=== PATIENT | female | born 1990 | race African-American/Black ===

== ENCOUNTER 2020-03-06 11:04 | Outpatient (REF) | payer OTHER, SELFPAY ==
--- NOTE | 2020-03-06 11:07 | XR_ITS ---
EXAMINATION: XR HAND, RIGHT CLINICAL INFORMATION: Fracture base 5th metacarpal. Followup. COMPARISON: Radiographs right hand 01/27/2020 TECHNIQUE: Right hand is imaged in 3 views. FINDINGS: There is a comminuted fracture base 5th metacarpal again noted with horizontal component as well as probable vertical component extending to the articular surface. There is no significant change in alignment. Some callus formation is noted around the fracture site. Fracture lines are still visible. Remainder of the hand is unremarkable. IMPRESSION: Healing fracture base 5th metacarpal.
== END 2020-03-06 11:05 | disposition home or self-care (01) ==
LOC: CF 11:04
PROVIDERS: PCP Nurse Practitioner Family; Visit Provider Physician Assistant
DX: S62.306D Unspecified fracture of fifth metacarpal bone, right hand, subsequent encounter for fracture with routine healing (principal); M79.641 Pain in right hand
CPT/HCPCS: 73130; 99213

== ENCOUNTER → 2020-03-11 12:41 | Outpatient (BNVA) | payer OTHER, SELFPAY | PROVIDERS: Visit Provider Advanced Practice Midwife | DX: Z76.89 Persons encountering health services in other specified circumstances (principal) ==

== ENCOUNTER 2020-03-18 00:23 | Emergency (ER) | payer OTHER, SELFPAY ==
[2020-03-18 00:27] VITALS: BP 125/65; PULSE 89; RESP 16; TEMP 37.5; O2SAT 98; BMI 38.6
--- NOTE | 2020-03-18 01:16 | PC.NURSE ---
Pt ambulating with a selby/steady gait while in the waiting room. Pt reports relief of nausea with ambulation. Pt states she is a G1 PO AO.
--- NOTE | 2020-03-18 01:51 | US_ITS ---
EXAMINATION: ULTRASOUND OB EARLY CLINICAL INFORMATION: Nausea/vomiting COMPARISON: None TECHNIQUE: Sonographic evaluation of the pelvis was performed transabdominally and transvaginally. FINDINGS: The uterus measures 8.4 x 4.2 x 5.0 cm. Trace fluid is noted in the cervix. There is an intrauterine gestational sac containing a yolk sac and pole. [place]-rump length of 0.6 cm corresponds to a gestational age of 6 weeks 4 days (estimated date of delivery 11/07/2020). A heartbeat is identified with a rate of 111 bpm. Heterogeneous region is noted in the endometrium near the gestational sac, which could reflect perigestational hemorrhage. The right ovary measures 4.2 x 2.8 x 3.6 cm and appears unremarkable. The left ovary measures 4.2 x 3.1 x 3.5 cm and also appears unremarkable. Small amount of free fluid is noted. IMPRESSION: 1. Single live intrauterine with estimated date of delivery 11/07/2020. 2. Heterogeneous region in the endometrium near the gestational sac may represent perigestational hemorrhage. Attention on follow-up recommended. 3. Small amount of pelvic free fluid.
[2020-03-18 02:11] VITALS: BP 122/71; PULSE 90; RESP 18; TEMP 37.1; O2SAT 98
[2020-03-18] MEDS: ondansetron HCL 4 MG/2 ML VIAL IVPUSH (02:28)
[2020-03-18] MEDS: 0.9 % Sodium Chloride 1,000 ML 999 ML IVCONT (02:28)
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
[2020-03-18 02:40] LABS: MANUAL DIFF FLAG NO
[2020-03-18 02:42] LABS: Basophils Percent Auto 0.2 % (0-2); Eosinophils Absolute Auto 0.1 X10*3/uL (0.0-0.4); Eosinophils Percent Auto 0.7 % (0-4); Hematocrit 37.9 % (37-47); Hemoglobin 12.4 g/dl (12.0-16.0); Imm Gran Abs Auto 0.03 X10*3/uL (0.00-0.03); Imm Gran Pct Auto 0.2 % (0.0-0.4); Lymphocytes Absolute Auto 2.3 X10*3/uL (1.2-4.9); Lymphocytes Percent Auto 16.7 % (20-40); Mean Corpuscular HGB Conc 32.7 g/dl (31.0-35.0); Mean Corpuscular Hemoglobin 28.3 pg (27.0-33.0); Mean Corpuscular Volume 86.5 fL (80-98); Mean Platelet Volume 10.6 fL (9.4-12.3); Monocytes Absolute Auto 0.6 X10*3/uL (0.1-1.2); Monocytes Percent Auto 4.7 % (2-11); Neutrophils Absolute Auto 10.6 X10*3/uL (2.0-8.3); Neutrophils Percent Auto 77.5 % (45-73); Platelet Count 275 X10*3/uL (160-400); Red Blood Count 4.38 X10*6/uL (4.20-5.50); Red Cell Distribution Width 13.8 % (11.0-16.0); White Blood Count 13.6 X10*3/uL (4.8-10.8)
[2020-03-18 02:45] LABS: Appearance Urine CLEAR; Color Urine DARK YELLOW; Glucose Urine UA NEG (NEG); Leukocyte Esterase Urine NEG (NEG); Nitrite Urine NEG (NEG); Specific Gravity - Urine >= 1.030 (1.005-1.025); Urine Blood NEG (NEG); Urine Ketones 15 MG/DL (NEG); Urine Protein TRACE MG/DL (NEG-TRACE)
[2020-03-18 02:47] LABS: UPreg QC Valid YES; Urine Pregnancy POSITIVE (NEGATIVE)
[2020-03-18 03:18] LABS: Alanine Aminotransferase 13 U/L (0-31); Albumin Level 4.6 g/dL (3.5-5.0); Alkaline Phosphatase 44 U/L (39-117); Anion Gap 15 (12-20); Aspartate Amino Transferase 15 U/L (5-31); Bilirubin Total 0.7 mg/dL (0.0-1.0); Blood Urea Nitrogen 6 mg/dL (9-16); Calcium 9.8 mg/dL (8.4-10.2); Carbon Dioxide 23 mmol/L (22-29); Chloride 104 mmol/L (96-108); Creatinine Clr Calc Pharmacy 167.7; Estimated Glomerular Filt Rate > 60; Glucose Random 104 mg/dL (60-115); Potassium 4.7 mmol/l (3.3-5.1); Sodium 137 mmol/L (135-145)
[2020-03-18 03:35] VITALS: BP 114/60; PULSE 66; RESP 18; TEMP 37.3; O2SAT 100
[2020-03-18 03:37] VITALS: PULSE 65
== END 2020-03-18 05:40 | disposition home or self-care (01) ==
PROVIDERS: Emergency Provider Student in an Organized Health Care Education/Training Program
DX: O26.891 Other specified pregnancy related conditions, first trimester (principal); R11.2 Nausea with vomiting, unspecified; Z3A.01 Less than 8 weeks gestation of pregnancy
CPT/HCPCS: 36415; 76801; 76817; 80053; 81003; 81025; 84702; 85025; 96361; 96374; 99284; 99285; J2405

== ENCOUNTER 2020-03-18 10:04 | Outpatient (REF) | payer OTHER, SELFPAY | END 2020-03-18 10:05 | disposition home or self-care (01) | LOC: HO.US 10:04 | PROVIDERS: Visit Provider Advanced Practice Midwife | DX: Z13.89 Encounter for screening for other disorder (principal) ==

== ENCOUNTER 2020-03-24 22:14 | Emergency (ER) | payer MEDICAID, SELFPAY ==
[2020-03-24 22:45] VITALS: BP 122/71; PULSE 81; RESP 18; TEMP 37.3; O2SAT 100; BMI 38.6
--- NOTE | 2020-03-25 01:45 | ED_ITS ---
HPI - Nausea/Vomiting/Diarrhea General Chief complaint: Nausea/Vomiting/Diarrhea Stated complaint: ?DEHYDRATION/VOMITING/7WKS PREG Time Seen by Provider: 03/25/20 01:44 History of Present Illness HPI Narrative: Patient is a 29-year-old female approximately 7 weeks . Patient was in the hospital last week had an ultrasound done that showed a positive intrauterine . Patient presented today with having continued nausea vomiting. Patient tried vitamin B6. Attempted tight again suppository. To no avail patient continued to have nausea vomiting. No abdominal pain. Positive generalized malaise. No coughing or congestion or upper respiratory symptoms. Patient from home. Did travel to [place] last week. No upper respiratory symptoms. No pain on urination. Symptoms similar to last week. Related Data Home Medications Medication Instructions Recorded Confirmed albuterol sulfate 90 mcg/actuation 2 puff PO Q6H PRN 03/11/20 03/11/20 aerosol inhaler amoxicillin 875 mg-potassium 1 tab PO BID 03/11/20 03/11/20 clavulanate 125 mg tablet cephalexin 500 mg capsule mg PO Q6H 03/11/20 03/11/20 cetirizine 10 mg tablet 10 mg PO DAILY 03/11/20 03/11/20 doxycycline hyclate 100 mg tablet 100 mg PO Q12H 03/11/20 03/11/20 medroxyprogesterone 10 mg tablet 0 mg PO 03/11/20 03/11/20 metronidazole 500 mg tablet 500 mg PO BID 03/11/20 03/11/20 norethindrone-e.estradiol 1 tab PO DAILY 03/11/20 03/11/20 triphasic 0.5 mg/0.75 mg/1 mg-35 mcg tablet prednisone 20 mg tablet 20 mg PO BID 03/11/20 03/11/20 vitamin with calcium 1 tab PO DAILY 03/11/20 03/11/20 no.72-iron 27 mg-folic acid 1 mg tablet sulfamethoxazole 800 1 tab PO Q12H 03/11/20 03/11/20 mg-trimethoprim 160 mg tablet Previous Rx's Medication Instructions Recorded vitamin with calcium 1 tab PO DAILY 30 Days #30 tab 03/11/20 no.72-iron 27 mg-folic acid 1 mg tablet pyridoxine (vitamin B6) 25 mg PO TID #60 tab 03/18/20 promethazine 12.5 mg rectal 12.5 mg DC Q6H PRN 10 Days #12 ea 03/21/20 suppository ondansetron 4 mg PO TID PRN 5 Days #5 tab 03/25/20 Allergies Allergy/AdvReac Type Severity Reaction Status Date / Time No Known Allergies Allergy Verified 03/06/20 11:19 [No Known Allergies*] Review of Systems Review of Systems: Constitutional: No Weight loss, No Fever, No Chills, No Night Sweats, No Fatigue, No Malaise ENT/Mouth: No Hearing loss, No Ear Pain, No Nasal Congestion, No Sinus Pain, No Hoarseness, No sore throat, No Rhinorrhea, No Swallowing Difficulty Eyes: No Eye Pain, No Swelling, No Redness, No Foreign Body, No Discharge, No Vision Changes Cardiovascular: No Chest Pain, No SOB, No Dyspnea on Exertion, No Orthopnea, No Edema, No Palpitations Respiratory: No Cough, No Sputum, No Wheezing, No Smoke Exposure, No Dyspnea Gastrointestinal: Positive nausea, vomiting. No Diarrhea, No Constipation, No abdominal Pain, No Hematochezia, No Melena Genitourinary: no irregular bleeding, No Dysuria, No Urinary Frequency, No Hematuria, No Urinary Incontinence, No Urgency, No Flank Pain, No Urinary Flow Changes, No Hesitancy Musculoskeletal: No joint pain, No Myalgias, No Joint Swelling Skin: No Skin Lesions, No rash Neuro: No Weakness, No Numbness, No Paresthesias, No Loss of Consciousness, No Dizziness, No Headache Psych: No Anxiety/Panic, No Depression, No SI/HI/AH/VH, No Social Issues, Heme/Lymph: No Bruising, No Bleeding,No Lymphadenopathy Endocrine: No Polyuria, No Polydipsia, No Temperature Intolerance [facility] Past Medical History Source: unable to obtain Medical History Asthma Family History Family History Father Heart attack Mother No problems noted. Brother No problems noted. Brother No problems noted. Brother No problems noted. Sister No problems noted. Social History Social History Alcohol intake: never Smoking Status: Former smoker Smoked in Last 30 Days: No Substance Use Type: Marijuana Last Used Substance: Weeks (ago) Advance Directives: No Advance Directives Information Provided: No Physical Exam Vital Signs: Vital Signs: Vital Signs Temp Pulse Resp BP Pulse Ox 03/25/20 03:39 98.2 F 70 18 108/47 L 99 03/25/20 02:07 98.9 F 77 16 114/65 100 03/24/20 22:45 99.1 F 81 18 122/71 100 Body Mass Index 38.6 Appearance: Alert. Oriented X3. No acute distress. Eyes: Pupils equal, round and reactive to light. ENT: Pharynx normal. Neck: Normal inspection. Neck supple. No lymph nodes noted. No crepitus CVS: Normal heart rate and rhythm. Pulses normal. Normal S1 and S2 Respiratory: No respiratory distress. Breath sounds normal. No Wheezing. No rales Abdomen: Soft and nontender. No rigidity. No distention. good BS x4 Skin: Skin warm and dry. Normal skin color. Normal skin turgor. Extremities: No lower extremity edema. Neurovascular intact to all extremities. No Lacerations. No Rash Neuro: Oriented X 3. No motor deficit. No sensory deficit. Moving all extermities. No slurred speech MDM - Nausea/Vomiting/Diarrhea MDM Narrative Medical decision making narrative: Positive nausea, vomiting. Positive generalized malaise. Patient is 6 weeks . Likely the nausea vomiting secondary to hyper emesis. Will give IV fluids. After weighing the risk of dehydration versus the risk of medications. It was decided to give patient a dose of Zofran. Labs ordered. Differential Diagnosis Differential diagnosis: Likely food poisoning, gastroenteritis and dehydration Medical Records Attestation: I reviewed the patient's medical records. Lab Data Attestation: I reviewed the patient's lab results. Result diagrams: 03/25/20 02:03 03/25/20 02:03 Labs: Lab Results 03/25/20 03/25/20 Range/Units 02:03 02:03 WBC 14.1 H (4.8-10.8) X10*3/uL RBC 4.16 L (4.20-5.50) X10*6/uL Hgb 11.9 L (12.0-16.0) g/dl Hct 36.3 L (37-47) % MCV 87.3 (80-98) fL MCH 28.6 (27.0-33.0) pg MCHC 32.8 (31.0-35.0) g/dl RDW 13.6 (11.0-16.0) % Plt Count 258 (160-400) X10*3/uL MPV 10.1 (9.4-12.3) fL Immature Gran % (Auto) 0.4 (0.0-0.4) % Neut % (Auto) 71.7 (45-73) % Lymph % (Auto) 20.6 (20-40) % [place] % (Auto) 6.2 (2-11) % Eos % (Auto) 0.7 (0-4) % Baso % (Auto) 0.4 (0-2) % Lymph # (Auto) 2.9 (1.2-4.9) X10*3/uL [place] # (Auto) 0.9 (0.1-1.2) X10*3/uL Eos # (Auto) 0.1 (0.0-0.4) X10*3/uL Baso # (Auto) 0.1 (0.0-0.2) X10*3/uL Abs Immat Gran (auto) 0.05 H (0.00-0.03) X10*3/uL Absolute Neuts (auto) 10.1 H (2.0-8.3) X10*3/uL Absolute Nucleated RBC 0.000 (0.0-0.012) X10*3/uL Nucleated RBC % (auto) 0.0 (0.0-0.2) /100WBC Sodium 136 (135-145) mmol/L Potassium 4.2 (3.3-5.1) mmol/l Chloride 102 (96-108) mmol/L Carbon Dioxide 23 (22-29) mmol/L Anion Gap 15 (12-20) BUN 8 L (9-16) mg/dL Creatinine 0.76 (0.5-1.4) mg/dL Estim Creat Clear Calc 163.3 Estimated GFR > 60 Random Glucose 93 (60-115) mg/dL Calcium 9.0 (8.4-10.2) mg/dL Total Bilirubin 0.5 (0.0-1.0) mg/dL Direct Bilirubin 0.2 (0.0-0.5) mg/dL AST 14 (5-31) U/L ALT 19 (0-31) U/L Alkaline Phosphatase 40 (39-117) U/L Total Protein 7.5 (6.5-8.0) g/dL Albumin 4.3 (3.5-5.0) g/dL Discharge Plan Discharge Clinical Impression: Hyperemesis gravidarum Patient Disposition: Home, Self-Care Instructions: Hyperemesis Gravidarum (ED) Prescriptions: New ondansetron 4 mg tablet,disintegrating 4 mg PO TID PRN (Reason: nausea and vomiting) 5 Days Qty: 5 RF: 0 No Action promethazine 12.5 mg suppository 12.5 mg DC Q6H PRN (Reason: hyperemesis) 10 Days Qty: 12 RF: 2 pyridoxine (vitamin B6) 25 mg tablet 25 mg PO TID Qty: 60 RF: 0 Plus (calcium carb) 27 mg iron- 1 mg tablet 1 tab PO DAILY RF: 0 amoxicillin-pot clavulanate 875-125 mg tablet 1 tab PO BID RF: 0 albuterol sulfate 90 mcg/actuation HFA aerosol inhaler 2 puff PO Q6H PRNRF: 0 prednisone 20 mg tablet 20 mg PO BID RF: 0 cetirizine 10 mg tablet 10 mg PO DAILY RF: 0 metronidazole 500 mg tablet 500 mg PO BID RF: 0 medroxyprogesterone 10 mg tablet 0 mg PO RF: 0 Nortrel 7/7/7 (28) 0.5/0.75/1 mg- 35 mcg tablet 1 tab PO DAILY RF: 0 doxycycline hyclate 100 mg tablet 100 mg PO Q12H RF: 0 cephalexin 500 mg capsule PO Q6H RF: 0 sulfamethoxazole-trimethoprim 800-160 mg tablet 1 tab PO Q12H RF: 0 Plus (calcium carb) 27 mg iron- 1 mg tablet 1 tab PO DAILY 30 Days Qty: 30 RF: 11 Referrals: James Maravilla, [facility] [Primary Care Provider] - 2 days (Please follow-up with your OBGYN in the next 2 days. Very bland diet. Clear liquid with saltine crackers. Zofran only during extreme nausea vomiting.)
[2020-03-25] MEDS: 0.9 % Sodium Chloride 1,000 ML 999 ML IVCONT ×2 (02:04→02:05)
[2020-03-25] MEDS: ondansetron HCL 4 MG/2 ML VIAL IVPUSH (02:05)
[2020-03-25 02:07] VITALS: BP 114/65; PULSE 77; RESP 16; TEMP 37.2; O2SAT 100
[2020-03-25 02:12] LABS: MANUAL DIFF FLAG NO
[2020-03-25 02:14] LABS: Basophils Absolute Auto 0.1 X10*3/uL (0.0-0.2); Basophils Percent Auto 0.4 % (0-2); Eosinophils Absolute Auto 0.1 X10*3/uL (0.0-0.4); Eosinophils Percent Auto 0.7 % (0-4); Hematocrit 36.3 % (37-47); Hemoglobin 11.9 g/dl (12.0-16.0); Imm Gran Abs Auto 0.05 X10*3/uL (0.00-0.03); Imm Gran Pct Auto 0.4 % (0.0-0.4); Lymphocytes Absolute Auto 2.9 X10*3/uL (1.2-4.9); Lymphocytes Percent Auto 20.6 % (20-40); Mean Corpuscular HGB Conc 32.8 g/dl (31.0-35.0); Mean Corpuscular Hemoglobin 28.6 pg (27.0-33.0); Mean Corpuscular Volume 87.3 fL (80-98); Mean Platelet Volume 10.1 fL (9.4-12.3); Monocytes Absolute Auto 0.9 X10*3/uL (0.1-1.2); Monocytes Percent Auto 6.2 % (2-11); Neutrophils Absolute Auto 10.1 X10*3/uL (2.0-8.3); Neutrophils Percent Auto 71.7 % (45-73); Platelet Count 258 X10*3/uL (160-400); Red Blood Count 4.16 X10*6/uL (4.20-5.50); Red Cell Distribution Width 13.6 % (11.0-16.0); White Blood Count 14.1 X10*3/uL (4.8-10.8)
[2020-03-25 02:37] LABS: Alanine Aminotransferase 19 U/L (0-31); Albumin Level 4.3 g/dL (3.5-5.0); Alkaline Phosphatase 40 U/L (39-117); Anion Gap 15 (12-20); Aspartate Amino Transferase 14 U/L (5-31); Bilirubin Direct 0.2 mg/dL (0.0-0.5); Bilirubin Total 0.5 mg/dL (0.0-1.0); Blood Urea Nitrogen 8 mg/dL (9-16); Carbon Dioxide 23 mmol/L (22-29); Chloride 102 mmol/L (96-108); Creatinine Clr Calc Pharmacy 163.3; Estimated Glomerular Filt Rate > 60; Glucose Random 93 mg/dL (60-115); Potassium 4.2 mmol/l (3.3-5.1); Sodium 136 mmol/L (135-145); Total Protein 7.5 g/dL (6.5-8.0)
--- NOTE | 2020-03-25 03:05 | PC.NURSE ---
REPORT TAKEN FROM RUTH GALVEZ AT THIS TIME. PT HAS 2 L NS RUNNING AT THIS TIME. PT NOT ACTIVELY VOMITTING. RECIEVED ULTRASOUND X 1 WEEK AGO. APPROX 7 WEEKS . STATES NO ACTIVE BLEEDING, CRAMPS. PT UNABLE TO GIVE URINE SAMPLE AT THIS TIME. EXPLAINED TO CALL WHEN ABLE TO. PT IN NAD
--- NOTE | 2020-03-25 03:33 | PC.NURSE ---
PT AMBULATED TO BATHROOM WITH STEADY GAIT FOR URINE SAMPLE
[2020-03-25 03:39] VITALS: BP 108/47; PULSE 70; RESP 18; TEMP 36.8; O2SAT 99
[2020-03-25 03:47] LABS: Appearance Urine CLEAR; Color Urine DARK YELLOW; Glucose Urine UA NEG (NEG); Leukocyte Esterase Urine NEG (NEG); Nitrite Urine NEG (NEG); Specific Gravity - Urine >= 1.030 (1.005-1.025); UACC Culture Trigger NO; Urine Blood NEG (NEG); Urine Ketones 15 MG/DL (NEG); Urine Protein NEG (NEG-TRACE)
== END 2020-03-25 04:04 | disposition home or self-care (01) ==
PROVIDERS: Emergency Provider Emergency Medicine Emergency Medical Services; PCP Nurse Practitioner Family
DX: O21.0 Mild hyperemesis gravidarum (principal); Z3A.01 Less than 8 weeks gestation of pregnancy; Z20.828 Contact with and (suspected) exposure to other viral communicable diseases; Z79.899 Other long term (current) drug therapy; Z87.891 Personal history of nicotine dependence
CPT/HCPCS: 36415; 80048; 80076; 81003; 85025; 87635; 96361; 96374; 99284; J2405

== ENCOUNTER → 2020-03-31 09:59 | Outpatient (BNVA) | payer MEDICAID, SELFPAY | PROVIDERS: PCP Nurse Practitioner Family; Referring Provider Nurse Practitioner Family; Visit Provider Advanced Practice Midwife | DX: Z76.89 Persons encountering health services in other specified circumstances (principal) ==

== ENCOUNTER 2020-04-01 07:48 | Outpatient (REF) | payer MEDICAID, SELFPAY ==
--- NOTE | 2020-04-01 08:10 | US_ITS ---
EXAMINATION: FIRST TRIMESTER OB ULTRASOUND CLINICAL INFORMATION: Follow-up subchorionic bleed COMPARISON: Previous exam 03/18/2020 TECHNIQUE: Transabdominal first trimester OB ultrasound FINDINGS: The uterus is normal in size and shape and measures 11.3 x 5.3 x 7 cm in dimension. There is an intrauterine gestational sac. [place]-rump length measures 2 cm suggesting gestational age of 8 weeks 4 days with estimated date of delivery of 11/06/2020. This agrees with date from previous exam. heart rate is 158 bpm. There is a yolk sac. There is a 2.3 x 1.2 x 1.5 cm hypoechoic collection adjacent to the gestational sac suggestive of a small subchorionic hemorrhage. This is more hypoechoic and similar in size compared to previous exam 03/18/2020. The maternal ovaries are normal. There is no fluid in the pelvis. US/US OB limited IMPRESSION: Single viable intrauterine . From today's measurements gestational age is estimated at 8 weeks 4 days with estimated date of delivery of 11/06/2020. Small hypoechoic collection adjacent to the gestational sac measuring 2.3 x 1.2 x 1.5 cm suggestive of subchorionic hemorrhage. This does not appear appreciably changed in size from previous exam.
[2020-04-01 09:33] LABS: Basophils Percent Auto 0.4 % (0-2); Eosinophils Absolute Auto 0.1 X10*3/uL (0.0-0.4); Eosinophils Percent Auto 0.5 % (0-4); Hematocrit 36.9 % (37-47); Hemoglobin 12.3 g/dl (12.0-16.0); Imm Gran Abs Auto 0.03 X10*3/uL (0.00-0.03); Imm Gran Pct Auto 0.3 % (0.0-0.4); Lymphocytes Absolute Auto 2.2 X10*3/uL (1.2-4.9); Lymphocytes Percent Auto 21.8 % (20-40); MANUAL DIFF FLAG NO; Mean Corpuscular HGB Conc 33.3 g/dl (31.0-35.0); Mean Corpuscular Hemoglobin 28.7 pg (27.0-33.0); Mean Corpuscular Volume 86.2 fL (80-98); Mean Platelet Volume 10.7 fL (9.4-12.3); Monocytes Absolute Auto 0.7 X10*3/uL (0.1-1.2); Monocytes Percent Auto 6.6 % (2-11); Neutrophils Absolute Auto 7.1 X10*3/uL (2.0-8.3); Neutrophils Percent Auto 70.4 % (45-73); Platelet Count 271 X10*3/uL (160-400); Red Blood Count 4.28 X10*6/uL (4.20-5.50); Red Cell Distribution Width 13.5 % (11.0-16.0); White Blood Count 10.1 X10*3/uL (4.8-10.8)
[2020-04-01 10:13] LABS: Amphetamine Screen Urine Not Detected (Not Detect); Barbiturates, Urine Not Detected (Not Detect); Benzodiazepines Screen Urine Not Detected (Not Detect); Cannabinoid Screen Urine POSITIVE (Not Detect); Cocaine Screen Urine Not Detected (Not Detect); Opiate Screen Urine Not Detected (Not Detect); Phencyclidine Screen Urine Not Detected (Not Detect)
[2020-04-01 10:24] LABS: HBsAGNum1 0.18 S/CO (0.00-0.99); HIV AB/AG Nonreactive (Nonreactive); HIV Num 1 0.19 S/CO (0.00-0.99); Hepatitis B Surface Antigen Negative (Negative)
[2020-04-01 10:32] LABS: Sickle Cell Scr NEGATIVE (NEGATIVE)
[2020-04-01 10:33] LABS: ~HepC Num1 0.11 S/CO (0.00-0.79); ~Hepatitis C Antibody Nonreactive (Nonreactive)
[2020-04-02 07:56] LABS: Syphilis Screen Nonreactive (Nonreactive)
[2020-04-02 09:17] LABS: Rubella IgG Antibody <0.90 index
[2020-04-02 13:36] LABS: Toxoplasma IgG Antibody <7.20 IU/mL; Toxoplasma IgM Antibody <8.00 AU/mL
== END 2020-04-01 07:49 | disposition home or self-care (01) ==
LOC: HO.US 07:48
PROVIDERS: PCP Nurse Practitioner Family; Visit Provider Advanced Practice Midwife
DX: O46.8X9 Other antepartum hemorrhage, unspecified trimester (principal)
CPT/HCPCS: 36415; 76815; 80307; 85025; 85660; 86762; 86777; 86778; 86780; 86787; 86803; 86850; 86900; 86901; 87086; 87340; 87389

== ENCOUNTER → 2020-04-04 10:22 | Outpatient (BNVA) | payer OTHER, SELFPAY | PROVIDERS: Visit Provider Physician Assistant | DX: S62.306D Unspecified fracture of fifth metacarpal bone, right hand, subsequent encounter for fracture with routine healing (principal); X58.XXXD Exposure to other specified factors, subsequent encounter | CPT/HCPCS: 99212 ==

== ENCOUNTER 2020-04-04 13:08 | Emergency (ER) | payer OTHER, SELFPAY ==
[2020-04-04 13:35] VITALS: BP 145/90; PULSE 67; RESP 17; TEMP 36.8; O2SAT 100; BMI 31.1
[2020-04-04] MEDS: 0.9 % Sodium Chloride 1,000 ML 999 ML IVCONT ×2 (14:06→15:31)
[2020-04-04] MEDS: diphenhydrAMINE HCL 50 MG/ML VIAL 25 MG IVPUSH (14:07)
[2020-04-04 14:20] LABS: MANUAL DIFF FLAG NO
[2020-04-04 14:21] LABS: Basophils Percent Auto 0.3 % (0-2); Eosinophils Absolute Auto 0.1 X10*3/uL (0.0-0.4); Eosinophils Percent Auto 0.4 % (0-4); Hematocrit 37.3 % (37-47); Hemoglobin 12.5 g/dl (12.0-16.0); Imm Gran Abs Auto 0.05 X10*3/uL (0.00-0.03); Imm Gran Pct Auto 0.4 % (0.0-0.4); Lymphocytes Absolute Auto 1.9 X10*3/uL (1.2-4.9); Lymphocytes Percent Auto 13.8 % (20-40); Mean Corpuscular HGB Conc 33.5 g/dl (31.0-35.0); Mean Corpuscular Hemoglobin 28.6 pg (27.0-33.0); Mean Corpuscular Volume 85.4 fL (80-98); Mean Platelet Volume 10.3 fL (9.4-12.3); Monocytes Absolute Auto 0.8 X10*3/uL (0.1-1.2); Monocytes Percent Auto 6.1 % (2-11); Neutrophils Absolute Auto 10.7 X10*3/uL (2.0-8.3); Platelet Count 291 X10*3/uL (160-400); Red Blood Count 4.37 X10*6/uL (4.20-5.50); Red Cell Distribution Width 13.3 % (11.0-16.0); White Blood Count 13.5 X10*3/uL (4.8-10.8)
[2020-04-04 14:36] LABS: Glucose Urine UA NEG (NEG); Leukocyte Esterase Urine NEG (NEG); Nitrite Urine NEG (NEG); Specific Gravity - Urine >= 1.030 (1.005-1.025); Urine Blood NEG (NEG); Urine Ketones 40 MG/DL (NEG); Urine Protein TRACE MG/DL (NEG-TRACE)
[2020-04-04 14:37] LABS: Appearance Urine HAZY; Color Urine DARK YELLOW; UACC Culture Trigger NO
[2020-04-04 14:53] LABS: Alanine Aminotransferase 27 U/L (0-31); Albumin Level 4.4 g/dL (3.5-5.0); Alkaline Phosphatase 39 U/L (39-117); Anion Gap 16 (12-20); Aspartate Amino Transferase 26 U/L (5-31); Bilirubin Direct 0.4 mg/dL (0.0-0.5); Bilirubin Total 0.6 mg/dL (0.0-1.0); Blood Urea Nitrogen 8 mg/dL (9-16); Calcium 8.9 mg/dL (8.4-10.2); Carbon Dioxide 23 mmol/L (22-29); Chloride 101 mmol/L (96-108); Creatinine Clr Calc Pharmacy 152.2; Estimated Glomerular Filt Rate > 60; Glucose Random 94 mg/dL (60-115); Lipase 39 U/L (8-78); Magnesium 1.9 mg/dL (1.6-2.6); Potassium 3.9 mmol/l (3.3-5.1); Sodium 136 mmol/L (135-145); Total Protein 7.8 g/dL (6.5-8.0)
--- NOTE | 2020-04-04 15:12 | ED.NAVMDI ---
HPI - Nausea/Vomiting/Diarrhea General Chief complaint: Nausea/Vomiting/Diarrhea Stated complaint: Nausea, vomiting Time Seen by Provider: 04/04/20 13:41 Source: patient Mode of arrival: ambulatory History of Present Illness HPI Narrative: 29-year-old female at 9 weeks gestation presenting to ED complaining of persistent nausea and vomiting with decreased p.o. intake. Reports inability to tolerate anything for the past 24 hours. Admits takes Zofran at home with relief, has been struggling with hyperemesis during . Denies fever, chills, diarrhea/constipation, abdominal pain, vaginal bleeding, vaginal discharge Reports taking multiple other antiemetics which provide no relief for her MD elicited complaint: nausea and vomiting Pertinent past history: anorexia Related Data Home Medications Medication Instructions Recorded Confirmed albuterol sulfate 90 mcg/actuation 2 puff PO Q6H PRN 03/11/20 03/31/20 aerosol inhaler amoxicillin 875 mg-potassium 1 tab PO BID 03/11/20 03/11/20 clavulanate 125 mg tablet cephalexin 500 mg capsule mg PO Q6H 03/11/20 03/11/20 cetirizine 10 mg tablet 10 mg PO DAILY 03/11/20 03/11/20 doxycycline hyclate 100 mg tablet 100 mg PO Q12H 03/11/20 03/11/20 medroxyprogesterone 10 mg tablet 0 mg PO 03/11/20 03/11/20 metronidazole 500 mg tablet 500 mg PO BID 03/11/20 03/11/20 norethindrone-e.estradiol 1 tab PO DAILY 03/11/20 03/11/20 triphasic 0.5 mg/0.75 mg/1 mg-35 mcg tablet prednisone 20 mg tablet 20 mg PO BID 03/11/20 03/11/20 vitamin with calcium 1 tab PO DAILY 03/11/20 03/11/20 no.72-iron 27 mg-folic acid 1 mg tablet sulfamethoxazole 800 1 tab PO Q12H 03/11/20 03/11/20 mg-trimethoprim 160 mg tablet Previous Rx's Medication Instructions Recorded vitamin with calcium 1 tab PO DAILY 30 Days #30 tab 03/11/20 no.72-iron 27 mg-folic acid 1 mg tablet pyridoxine (vitamin B6) 25 mg PO TID #60 tab 03/18/20 promethazine 12.5 mg rectal 12.5 mg RI Q6H PRN 10 Days #12 ea 03/21/20 suppository ondansetron 4 mg PO TID PRN 5 Days #5 tab 03/25/20 diphenhydramine HCl [Benadryl] 25 mg PO Q6H PRN #14 cap 04/04/20 ondansetron HCl [Zofran] 4 mg PO Q8H PRN #10 tab 04/04/20 Allergies Allergy/AdvReac Type Severity Reaction Status Date / Time No Known Allergies Allergy Verified 04/04/20 10:35 [No Known Allergies*] Review of Systems Review of Systems: Constitutional: No Weight loss, No Fever, No Chills, +anorexia Cardiovascular: No Chest Pain, No SOB Respiratory: No Cough, No Sputum Gastrointestinal: +Nausea, +Vomiting, No Diarrhea, No Constipation, No Abdominal pain, no vaginal bleeding, no vaginal discharge Genitourinary: No irregular bleeding, No Dysuria, No Urinary Frequency, No Hematuria, No Flank Pain Musculoskeletal: No joint pain, No Myalgias, No Joint Swelling Skin: No Skin Lesions, No rash Yes all other systems are reviewed and are negative [facility] Past Medical History Attestation statement: The following information was validated with the patient. Medical History Asthma Hx of hepatitis C Family History Family History Father Heart attack Mother No problems noted. Brother No problems noted. Brother No problems noted. Brother No problems noted. Sister No problems noted. Maternal Grandmother Hx of diabetes mellitus Hx of primary hypertension Maternal Grandfather History of heart attack Paternal Grandmother No problems noted. Paternal Grandfather No problems noted. 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 Current occupational exposures/hazards: No Physical Exam Vital Signs: Vital Signs: Last Vital Signs Temp 97.9 F 11/06/20 15:34 Pulse 67 04/04/20 15:34 Resp 17 04/04/20 15:34 BP 103/57 L 04/04/20 15:34 Pulse Ox 100 04/04/20 15:34 Body Mass Index 31.1 Const: General: cooperative and healthy appearing Orientation/consciousness: patient oriented x3 Limitations: no limitations HENMT: Head: Yes normal to inspection Ears: hearing grossly normal bilaterally General nose exam: Normal external nose present Face and sinus: Yes normal facial exam Eyes: General: appearance normal, both eyes and all related structures EOM: EOMs intact bilaterally Neck: Neck: Yes normal visual inspection Resp: Effort & Inspection: normal respiratory effort Cardio: Rate: regular rate GI: Inspection: Yes normal to inspection Palpation (GI): Soft to palpation, nontender, no guarding and not rigid : General: Yes no CVA tenderness Back/Spine/Pelvis: Back: no CVA tenderness Skin: Rashes: no rashes Wounds: no wounds Neuro: General: patient oriented x3 Gait exam (Neuro): Normal gait present Extrem: General: Yes normal to inspection Course Course Course Narrative: -mild leukocytosis of 13.5> likely from emesis, labs are otherwise unremarkable -UA with 40 ketones, not infected -1524--no episodes of emesis since ED arrival -1530--patient is tolerating p.o. saltines in the ED without nausea or vomiting. Will give total of 2L IVF and plan for DC home with OBGYN follow-up Discussed with patient risks of possible congenital defects with Zofran, she reports has been discussed in the past, understands risks, however is only medication that helps her symptoms, is agreeable to receive IV Zofran in the ED. -1700--on re-evaluation patient reports symptomatic improvement in the ED, was able to tolerate p.o., worrisome signs and symptoms and strict return precautions discussed. Patient is to follow-up with her OBGYN. She verbalized understanding and feels safe for discharge home MDM - Nausea/Vomiting/Diarrhea MDM Narrative Medical decision making narrative: 29-year-old female at 9 weeks gestation presenting to ED complaining of persistent nausea and vomiting with decreased p.o. intake. On exam VSS, NAD/nontoxic appearing, abdomen soft/nontender, no CVAT. Concern for dehydration/hyperemesis. Lower concern for miscarriage or infectious etiology Plan: Labs, UA, IVF, symptomatic therapy/reassess Lab Data Result diagrams: 04/04/20 14:04/04/20 14: Labs: Lab Results 04/04/20 04/04/20 04/04/20 Range/Units 14: 14: 14:01 WBC 13.5 H (4.8-10.8) X10*3/uL RBC 4.37 (4.20-5.50) X10*6/uL Hgb 12.5 (12.0-16.0) g/dl Hct 37.3 (37-47) % MCV 85.4 (80-98) fL MCH 28.6 (27.0-33.0) pg MCHC 33.5 (31.0-35.0) g/dl RDW 13.3 (11.0-16.0) % Plt Count 291 (160-400) X10*3/uL MPV 10.3 (9.4-12.3) fL Immature Gran % (Auto) 0.4 (0.0-0.4) % Neut % (Auto) 79.0 H (45-73) % Lymph % (Auto) 13.8 L (20-40) % [place] % (Auto) 6.1 (2-11) % Eos % (Auto) 0.4 (0-4) % Baso % (Auto) 0.3 (0-2) % Lymph # (Auto) 1.9 (1.2-4.9) X10*3/uL [place] # (Auto) 0.8 (0.1-1.2) X10*3/uL Eos # (Auto) 0.1 (0.0-0.4) X10*3/uL Baso # (Auto) 0.0 (0.0-0.2) X10*3/uL Abs Immat Gran (auto) 0.05 H (0.00-0.03) X10*3/uL Absolute Neuts (auto) 10.7 H (2.0-8.3) X10*3/uL Absolute Nucleated RBC 0.000 (0.0-0.012) X10*3/uL Nucleated RBC % (auto) 0.0 (0.0-0.2) /100WBC Sodium 136 (135-145) mmol/L Potassium 3.9 (3.3-5.1) mmol/l Chloride 101 (96-108) mmol/L Carbon Dioxide 23 (22-29) mmol/L Anion Gap 16 (12-20) BUN 8 L (9-16) mg/dL Creatinine 0.73 (0.5-1.4) mg/dL Estim Creat Clear Calc 152.2 Estimated GFR > 60 Random Glucose 94 (60-115) mg/dL Calcium 8.9 (8.4-10.2) mg/dL Magnesium 1.9 (1.6-2.6) mg/dL Total Bilirubin 0.6 (0.0-1.0) mg/dL Direct Bilirubin 0.4 (0.0-0.5) mg/dL AST 26 D (5-31) U/L ALT 27 (0-31) U/L Alkaline Phosphatase 39 (39-117) U/L Total Protein 7.8 (6.5-8.0) g/dL Albumin 4.4 (3.5-5.0) g/dL Lipase 39 (8-78) U/L Beta HCG, Quant 899601 mIU/mL Urine Color Urine Appearance Urine pH (5.0-8.0) Ur Specific [place] (1.005-1.025) Urine Protein (NEG-TRACE) MG/DL Urine Glucose (UA) (NEG) MG/DL Urine Ketones (NEG) MG/DL Urine Blood (NEG) Urine Nitrite (NEG) Ur Leukocyte Esterase (NEG) 04/04/20 Range/Units 14:01 WBC (4.8-10.8) X10*3/uL RBC (4.20-5.50) X10*6/uL Hgb (12.0-16.0) g/dl Hct (37-47) % MCV (80-98) fL MCH (27.0-33.0) pg MCHC (31.0-35.0) g/dl RDW (11.0-16.0) % Plt Count (160-400) X10*3/uL MPV (9.4-12.3) fL Immature Gran % (Auto) (0.0-0.4) % Neut % (Auto) (45-73) % Lymph % (Auto) (20-40) % [place] % (Auto) (2-11) % Eos % (Auto) (0-4) % Baso % (Auto) (0-2) % Lymph # (Auto) (1.2-4.9) X10*3/uL [place] # (Auto) (0.1-1.2) X10*3/uL Eos # (Auto) (0.0-0.4) X10*3/uL Baso # (Auto) (0.0-0.2) X10*3/uL Abs Immat Gran (auto) (0.00-0.03) X10*3/uL Absolute Neuts (auto) (2.0-8.3) X10*3/uL Absolute Nucleated RBC (0.0-0.012) X10*3/uL Nucleated RBC % (auto) (0.0-0.2) /100WBC Sodium (135-145) mmol/L Potassium (3.3-5.1) mmol/l Chloride (96-108) mmol/L Carbon Dioxide (22-29) mmol/L Anion Gap (12-20) BUN (9-16) mg/dL Creatinine (0.5-1.4) mg/dL Estim Creat Clear Calc Estimated GFR Random Glucose (60-115) mg/dL Calcium (8.4-10.2) mg/dL Magnesium (1.6-2.6) mg/dL Total Bilirubin (0.0-1.0) mg/dL Direct Bilirubin (0.0-0.5) mg/dL AST (5-31) U/L ALT (0-31) U/L Alkaline Phosphatase (39-117) U/L Total Protein (6.5-8.0) g/dL Albumin (3.5-5.0) g/dL Lipase (8-78) U/L Beta HCG, Quant mIU/mL Urine Color DARK YELLOW Urine Appearance HAZY Urine pH 6.0 (5.0-8.0) Ur Specific [place] >= 1.030 H (1.005-1.025) Urine Protein TRACE (NEG-TRACE) MG/DL Urine Glucose (UA) NEG (NEG) MG/DL Urine Ketones 40 (NEG) MG/DL Urine Blood NEG (NEG) Urine Nitrite NEG (NEG) Ur Leukocyte Esterase NEG (NEG) Discharge Plan Discharge Clinical Impression: Hyperemesis gravidarum Patient Disposition: Home, Self-Care Instructions: Hyperemesis Gravidarum (ED) Additional Instructions: Your blood work today in the ED Your urine showed elements of dehydration You need to stay hydrated at home, drink Gatorade, Pedialyte, water You can continue to take Zofran at home for nausea, be aware Zofran can cause congenital defects In addition you can take Benadryl which will help with nausea/vomiting, be aware that it will make you drowsy If you are unable to eat or drink, develops fever, abdominal pain, vaginal bleeding or discharge return to the ED immediately Prescriptions: New ondansetron HCl [Zofran] 4 mg tablet 4 mg PO Q8H PRN (Reason: nausea and vomiting) Qty: 10 RF: 0 diphenhydramine HCl [Benadryl] 25 mg capsule 25 mg PO Q6H PRN (Reason: nausea and vomiting) Qty: 14 RF: 0 No Action promethazine 12.5 mg suppository 12.5 mg RI Q6H PRN (Reason: hyperemesis) 10 Days Qty: 12 RF: 2 ondansetron 4 mg tablet,disintegrating 4 mg PO TID PRN (Reason: nausea and vomiting) 5 Days Qty: 5 RF: 0 pyridoxine (vitamin B6) 25 mg tablet 25 mg PO TID Qty: 60 RF: 0 Plus (calcium carb) 27 mg iron- 1 mg tablet 1 tab PO DAILY RF: 0 amoxicillin-pot clavulanate 875-125 mg tablet 1 tab PO BID RF: 0 albuterol sulfate 90 mcg/actuation HFA aerosol inhaler 2 puff PO Q6H PRNRF: 0 prednisone 20 mg tablet 20 mg PO BID RF: 0 cetirizine 10 mg tablet 10 mg PO DAILY RF: 0 metronidazole 500 mg tablet 500 mg PO BID RF: 0 medroxyprogesterone 10 mg tablet 0 mg PO RF: 0 Nortrel 7/7/7 (28) 0.5/0.75/1 mg- 35 mcg tablet 1 tab PO DAILY RF: 0 doxycycline hyclate 100 mg tablet 100 mg PO Q12H RF: 0 cephalexin 500 mg capsule PO Q6H RF: 0 sulfamethoxazole-trimethoprim 800-160 mg tablet 1 tab PO Q12H RF: 0 Plus (calcium carb) 27 mg iron- 1 mg tablet 1 tab PO DAILY 30 Days Qty: 30 RF: 11 Referrals: Lupis Zavala CNM [Certified Nurse Sterilisation Technician] - 3 days
[2020-04-04 15:34] VITALS: BP 103/57; PULSE 67; RESP 17; TEMP 36.6; O2SAT 100
[2020-04-04] MEDS: ondansetron HCL 4 MG/2 ML VIAL IVPUSH (17:22)
== END 2020-04-04 17:50 | disposition home or self-care (01) ==
PROVIDERS: Physician Assistant; Emergency Provider Emergency Medicine; PCP Nurse Practitioner Family
DX: O21.0 Mild hyperemesis gravidarum (principal); Z3A.09 9 weeks gestation of pregnancy; Z79.899 Other long term (current) drug therapy
CPT/HCPCS: 36415; 80048; 80076; 81003; 83690; 83735; 84702; 85025; 96361; 96374; 96375; 99284; J1200; J2405

== ENCOUNTER 2020-04-21 11:06 | Outpatient (REF) | payer OTHER, SELFPAY ==
[2020-04-22 05:59] LABS: CT PCR NOT DETECTED (Not Detect.); NG PCR NOT DETECTED (Not Detect.)
[2020-04-22 09:30] LABS: BV Int Neg Control Negative (Negative); BV Int Pos Control Positive (Positive)
== END 2020-04-21 11:07 | disposition home or self-care (01) ==
LOC: HO.LAB 11:06
PROVIDERS: PCP Nurse Practitioner Family; Visit Provider Advanced Practice Midwife
DX: Z34.90 Encounter for supervision of normal pregnancy, unspecified, unspecified trimester (principal); Z13.31 Encounter for screening for depression
CPT/HCPCS: 87480; 87491; 87510; 87591; 87660

== ENCOUNTER 2020-04-23 08:05 | Emergency (ER) | payer OTHER, SELFPAY ==
[2020-04-23 08:27] VITALS: BP 133/77; PULSE 87; RESP 15; TEMP 36.6; O2SAT 98; BMI 37.3
[2020-04-23 09:09] LABS: Glucose Urine UA NEG (NEG); Leukocyte Esterase Urine NEG (NEG); Nitrite Urine NEG (NEG); Specific Gravity - Urine >= 1.030 (1.005-1.025); Urine Blood 2+ (NEG); Urine Ketones NEG (NEG); Urine Protein NEG (NEG-TRACE)
[2020-04-23 09:10] LABS: Appearance Urine CLEAR; Color Urine YELLOW
--- NOTE | 2020-04-23 09:14 | US_ITS ---
EXAMINATION: US OBSTETRICAL ULTRASOUND CLINICAL INFORMATION: Vaginal bleeding, mild cramping. COMPARISON: Ultrasound pelvis 04/01/2020, 03/18/2020. Gestational age by initial ultrasound dating is 11 weeks 5 days. Estimated date of delivery by initial ultrasound dating is 11/07/2020. TECHNIQUE: Ultrasound of the maternal pelvis is performed using transabdominal transducer. M-mode Doppler is also performed. FINDINGS: There is single intrauterine gestation again seen. Small subchorionic hemorrhage is decreased in size, current measurements 0.4 x 0.7 x 1.6 cm. Prior measurement 1.2 x 1.5 x 2.3 cm. There is a contraction anterior uterus 2.7 cm size. No fibroid in this area on prior imaging. Early posterior placenta is suggested. No placental hemorrhage or hematoma. HR: 153 beats per minute. CRL (crown rump length): 4.4 cm (11 weeks 2 days +/- 4 days). There is been appropriate growth since the initial ultrasound. MATERNAL ADNEXA: The right maternal ovary measures 4.2 x 2.5 x 4.2 cm. The left maternal ovary measures 4.2 x 2.5 x 3.0 cm. No adnexal mass or maternal pelvic ascites. US/US OB follow up IMPRESSION: 1. Single intrauterine gestation with appropriate growth since the initial ultrasound. cardiac activity 153 bpm. 2. Small subchorionic hemorrhage decreased in size from prior studies, currently 0.4 x 0.7 x 1.6 cm. 3. No maternal adnexal mass or pelvic ascites.
[2020-04-23 09:19] LABS: MANUAL DIFF FLAG NO
[2020-04-23 09:23] LABS: Bacteria Urine 2+ /LPF; Squamous Epithelial Cell Urine 2+ /LPF; WBC Urine 0-2 /HPF (0-4)
[2020-04-23 09:24] LABS: Mucus Urine 1+ /LPF
[2020-04-23 09:31] LABS: INTERNATIONAL NORM RATIO 1.1 (0.9-1.1); Prothrombin Time 12.6 SEC (10.8-13.0)
[2020-04-23 09:33] LABS: Basophils Percent Auto 0.3 % (0-2); Eosinophils Absolute Auto 0.2 X10*3/uL (0.0-0.4); Eosinophils Percent Auto 1.5 % (0-4); Hematocrit 34.6 % (37-47); Hemoglobin 11.6 g/dl (12.0-16.0); Imm Gran Abs Auto 0.04 X10*3/uL (0.00-0.03); Imm Gran Pct Auto 0.4 % (0.0-0.4); Lymphocytes Absolute Auto 1.7 X10*3/uL (1.2-4.9); Lymphocytes Percent Auto 17.2 % (20-40); Mean Corpuscular HGB Conc 33.5 g/dl (31.0-35.0); Mean Corpuscular Hemoglobin 29.2 pg (27.0-33.0); Mean Corpuscular Volume 87.2 fL (80-98); Mean Platelet Volume 10.3 fL (9.4-12.3); Monocytes Absolute Auto 0.5 X10*3/uL (0.1-1.2); Monocytes Percent Auto 5.2 % (2-11); Neutrophils Absolute Auto 7.4 X10*3/uL (2.0-8.3); Neutrophils Percent Auto 75.4 % (45-73); Platelet Count 275 X10*3/uL (160-400); Red Blood Count 3.97 X10*6/uL (4.20-5.50); Red Cell Distribution Width 13.9 % (11.0-16.0); White Blood Count 9.9 X10*3/uL (4.8-10.8)
[2020-04-23 09:50] LABS: Alanine Aminotransferase 9 U/L (0-31); Albumin Level 3.8 g/dL (3.5-5.0); Alkaline Phosphatase 37 U/L (39-117); Anion Gap 12 (12-20); Aspartate Amino Transferase 11 U/L (5-31); Bilirubin Direct < 0.2 mg/dL (0.0-0.5); Bilirubin Total 0.2 mg/dL (0.0-1.0); Blood Urea Nitrogen 5 mg/dL (9-16); Calcium 8.7 mg/dL (8.4-10.2); Carbon Dioxide 24 mmol/L (22-29); Chloride 104 mmol/L (96-108); Creatinine Clr Calc Pharmacy 181.6; Estimated Glomerular Filt Rate > 60; Glucose Random 90 mg/dL (60-115); Magnesium 1.7 mg/dL (1.6-2.6); Sodium 136 mmol/L (135-145); Total Protein 6.8 g/dL (6.5-8.0)
--- NOTE | 2020-04-23 11:09 | ED.FEMALEGU ---
HPI - Female Genitourinary General Chief complaint: Vaginal Bleeding Stated complaint: abd pain, vaginal bleeding, Time Seen by Provider: 04/23/20 08:43 Source: patient Mode of arrival: ambulatory Limitations: no limitations History of Present Illness HPI Narrative: 29yoF who is [id number] currently 11 weeks being followed by [facility] presenting to the ED c c/o vaginal bleed since lastnight brown colored only when she wipes and mild lower abd cramping. Denies any fevers, nausea, vomiting or vaginal discharge. Denies any additional complaints or concerns at this time. Patient's due date is 11/08/2019 confirm with ultrasound. MD elicited complaint: possible STD Related Data Home Medications Medication Instructions Recorded Confirmed albuterol sulfate 90 mcg/actuation 2 puff PO Q6H PRN 03/11/20 03/31/20 aerosol inhaler amoxicillin 875 mg-potassium 1 tab PO BID 03/11/20 03/11/20 clavulanate 125 mg tablet cephalexin 500 mg capsule mg PO Q6H 03/11/20 03/11/20 cetirizine 10 mg tablet 10 mg PO DAILY 03/11/20 03/11/20 doxycycline hyclate 100 mg tablet 100 mg PO Q12H 03/11/20 03/11/20 medroxyprogesterone 10 mg tablet 0 mg PO 03/11/20 03/11/20 metronidazole 500 mg tablet 500 mg PO BID 03/11/20 03/11/20 norethindrone-e.estradiol 1 tab PO DAILY 03/11/20 03/11/20 triphasic 0.5 mg/0.75 mg/1 mg-35 mcg tablet prednisone 20 mg tablet 20 mg PO BID 03/11/20 03/11/20 vitamin with calcium 1 tab PO DAILY 03/11/20 03/11/20 no.72-iron 27 mg-folic acid 1 mg tablet sulfamethoxazole 800 1 tab PO Q12H 03/11/20 03/11/20 mg-trimethoprim 160 mg tablet Previous Rx's Medication Instructions Recorded vitamin with calcium 1 tab PO DAILY 30 Days #30 tab 03/11/20 no.72-iron 27 mg-folic acid 1 mg tablet pyridoxine (vitamin B6) 25 mg PO TID #60 tab 03/18/20 promethazine 12.5 mg rectal 12.5 mg FL Q6H PRN 10 Days #12 ea 03/21/20 suppository ondansetron 4 mg PO TID PRN 5 Days #5 tab 03/25/20 diphenhydramine HCl [Benadryl] 25 mg PO Q6H PRN #14 cap 04/04/20 ondansetron HCl [Zofran] 4 mg PO Q8H PRN #10 tab 04/04/20 acetaminophen [Tylenol] 650 mg PO Q6H PRN #10 tab 04/23/20 Allergies Allergy/AdvReac Type Severity Reaction Status Date / Time No Known Allergies Allergy Verified 04/21/20 11:35 [No Known Allergies*] Review of Systems Review of Systems: Constitutional : No Fever, No Chills, No Night Sweats, No Fatigue, No Malaise Cardiovascular : No Chest Pain, No SOB Respiratory : No Cough, No Sputum Gastrointestinal : No Nausea, No Vomiting, No Diarrhea, No Constipation, + abdominal Pain, No Hematochezia, No Melena Genitourinary : + irregular bleeding, No Dysuria, No Urinary Frequency, No Hematuria, No Urinary Incontinence, No Urgency, No Flank Pain, No Urinary Flow Changes, No Hesitancy, No vaginal discharge Musculoskeletal : No joint pain, No Myalgias, No Joint Swelling Skin : No Skin Lesions, No rash Neuro : No Weakness, No Numbness, No Paresthesias, No Dizziness, No Headache Heme/Lymph: No Lymphadenopathy Yes all other systems are reviewed and are negative [facility] Past Medical History Attestation statement: The following information was validated with the patient. Medical History Asthma Eczema Hx of hepatitis C Family History Family History Father Heart attack Mother No problems noted. Brother No problems noted. Brother No problems noted. Brother No problems noted. Sister No problems noted. Maternal Grandmother Hx of diabetes mellitus Hx of primary hypertension Maternal Grandfather History of heart attack Paternal Grandmother No problems noted. Paternal Grandfather No problems noted. 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 Blood pressure normal. Heart rate normal. Respiration rate normal. Temperature normal. Oxygen saturation normal. Appearance: Alert. Oriented X3. No acute distress. Head: Normal external exam. Normocephalic. Atraumatic. Eyes: PERRLA. EOMI. Conjunctiva and sclera normal. Eyelids normal. ENT: EAC normal. TM's Normal. Pharynx normal. Uvula midline. Moist mucous membranes. . Neck: Normal inspection. Neck supple. FROM. No adenopathy. Thyroid Normal. No meningeal signs. No neck mass noted. CVS: Normal heart rate and rhythm. Heart sound normal. No murmurs noted. Pulses normal throughout. Respiratory: No respiratory distress. Painless inspiration. Breath sounds normal. No wheezes/rales/rhonchi noted. Chest nontender. No accessory muscle usage noted or decreased air movement noted. Abdomen: Soft and mild ttp Suprapubic abdomen. Bowel sounds normal in all 4 quadrants. No distention noted. No organomegaly noted. No visible injury noted. Speculum Exam: Normal external appearance, urethra normal, no lesions on the urethra or swelling noted. On speculum exam patient noted to have dark brown vaginal blood although no active bleeding and no abnormal discharge noted. Cervical os is closed. 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 Back: No CVA tenderness. Full range of motion noted. Skin: Skin warm and dry. Normal skin color. Normal skin turgor. No rashes/lesions/lacerations noted. Extremities: No lower extremity edema. Extremities exhibit normal range of motion. Extremities nontender. Neuro: Oriented X 3. No motor deficit. No sensory deficit. Reflexes normal. Course Course Course Narrative: 29yoF who is [id number] currently 11 weeks being followed by [facility] presenting to the ED c c/o vaginal bleed since lastnight brown colored only when she wipes and mild lower abd cramping. Denies any fevers, nausea, vomiting or vaginal discharge. Denies any additional complaints or concerns at this time. Patient's due date is 11/08/2019 confirm with ultrasound. - labs obtained within normal limits. Serum quant lower than on 04/04/2020 although consistent with the patient is 11 weeks. UA within normal limits evidence of blood otherwise no evidence of a UTI. First trimester ultrasound reveals single intrauterine gestation with appropriate growth since the initial ultrasound cardiac activity at 153. Small subchorionic hemorrhage decreased in size from prior studies, currently 0.4 x 0.7 x 1.6 cm. No maternal adnexal mass or pelvic ascites. - therefore consulted with from OBGYN and she reported that this could be a threatened to have the patient on pelvic rest for at least a week and to have repeat serum quant within 48 hours and to follow-up with OBGYN therefore I gave the patient a copy for an outpatient order for a serum quant for 04/25/2020 and instructions to return if any new or worsening symptoms to follow-up with OBGYN this week. Patient understands agrees with this plan. MDM - Female Genitourinary Medical Records Attestation: I reviewed the patient's medical records. Lab Data Attestation: I reviewed the patient's lab results. Result diagrams: 04/23/20 09:12 04/23/20 09:12 Labs: Lab Results 04/23/20 04/23/20 04/23/20 Range/Units 08:52 09:12 09:12 WBC 9.9 (4.8-10.8) X10*3/uL RBC 3.97 L (4.20-5.50) X10*6/uL Hgb 11.6 L (12.0-16.0) g/dl Hct 34.6 L (37-47) % MCV 87.2 (80-98) fL MCH 29.2 (27.0-33.0) pg MCHC 33.5 (31.0-35.0) g/dl RDW 13.9 (11.0-16.0) % Plt Count 275 (160-400) X10*3/uL MPV 10.3 (9.4-12.3) fL Immature Gran % (Auto) 0.4 (0.0-0.4) % Neut % (Auto) 75.4 H (45-73) % Lymph % (Auto) 17.2 L (20-40) % [place] % (Auto) 5.2 (2-11) % Eos % (Auto) 1.5 (0-4) % Baso % (Auto) 0.3 (0-2) % Lymph # (Auto) 1.7 (1.2-4.9) X10*3/uL [place] # (Auto) 0.5 (0.1-1.2) X10*3/uL Eos # (Auto) 0.2 (0.0-0.4) X10*3/uL Baso # (Auto) 0.0 (0.0-0.2) X10*3/uL Abs Immat Gran (auto) 0.04 H (0.00-0.03) X10*3/uL Absolute Neuts (auto) 7.4 (2.0-8.3) X10*3/uL Absolute Nucleated RBC 0.000 (0.0-0.012) X10*3/uL Nucleated RBC % (auto) 0.0 (0.0-0.2) /100WBC PT 12.6 (10.8-13.0) SEC INR 1.1 (0.9-1.1) Sodium (135-145) mmol/L Potassium (3.3-5.1) mmol/l Chloride (96-108) mmol/L Carbon Dioxide (22-29) mmol/L Anion Gap (12-20) BUN (9-16) mg/dL Creatinine (0.5-1.4) mg/dL Estim Creat Clear Calc Estimated GFR Random Glucose (60-115) mg/dL Calcium (8.4-10.2) mg/dL Magnesium (1.6-2.6) mg/dL Total Bilirubin (0.0-1.0) mg/dL Direct Bilirubin (0.0-0.5) mg/dL AST (5-31) U/L ALT (0-31) U/L Alkaline Phosphatase (39-117) U/L Total Protein (6.5-8.0) g/dL Albumin (3.5-5.0) g/dL Beta HCG, Quant mIU/mL Urine Color YELLOW Urine Appearance CLEAR Urine pH 6.0 (5.0-8.0) Ur Specific [place] >= 1.030 H (1.005-1.025) Urine Protein NEG (NEG-TRACE) MG/DL Urine Glucose (UA) NEG (NEG) MG/DL Urine Ketones NEG (NEG) MG/DL Urine Blood 2+ H (NEG) Urine Nitrite NEG (NEG) Ur Leukocyte Esterase NEG (NEG) Urine RBC 10-14 H (0) /HPF Urine WBC 0-2 (0-4) /HPF Ur Squamous Epith Cells 2+ /LPF Urine Bacteria 2+ /LPF Urine Mucus 1+ /LPF 04/23/20 Range/Units 09:12 WBC (4.8-10.8) X10*3/uL RBC (4.20-5.50) X10*6/uL Hgb (12.0-16.0) g/dl Hct (37-47) % MCV (80-98) fL MCH (27.0-33.0) pg MCHC (31.0-35.0) g/dl RDW (11.0-16.0) % Plt Count (160-400) X10*3/uL MPV (9.4-12.3) fL Immature Gran % (Auto) (0.0-0.4) % Neut % (Auto) (45-73) % Lymph % (Auto) (20-40) % [place] % (Auto) (2-11) % Eos % (Auto) (0-4) % Baso % (Auto) (0-2) % Lymph # (Auto) (1.2-4.9) X10*3/uL [place] # (Auto) (0.1-1.2) X10*3/uL Eos # (Auto) (0.0-0.4) X10*3/uL Baso # (Auto) (0.0-0.2) X10*3/uL Abs Immat Gran (auto) (0.00-0.03) X10*3/uL Absolute Neuts (auto) (2.0-8.3) X10*3/uL Absolute Nucleated RBC (0.0-0.012) X10*3/uL Nucleated RBC % (auto) (0.0-0.2) /100WBC PT (10.8-13.0) SEC INR (0.9-1.1) Sodium 136 (135-145) mmol/L Potassium 4.0 (3.3-5.1) mmol/l Chloride 104 (96-108) mmol/L Carbon Dioxide 24 (22-29) mmol/L Anion Gap 12 (12-20) BUN 5 L (9-16) mg/dL Creatinine 0.67 (0.5-1.4) mg/dL Estim Creat Clear Calc 181.6 Estimated GFR > 60 Random Glucose 90 (60-115) mg/dL Calcium 8.7 (8.4-10.2) mg/dL Magnesium 1.7 (1.6-2.6) mg/dL Total Bilirubin 0.2 (0.0-1.0) mg/dL Direct Bilirubin < 0.2 (0.0-0.5) mg/dL AST 11 D (5-31) U/L ALT 9 (0-31) U/L Alkaline Phosphatase 37 L (39-117) U/L Total Protein 6.8 (6.5-8.0) g/dL Albumin 3.8 (3.5-5.0) g/dL Beta HCG, Quant 66738 mIU/mL Urine Color Urine Appearance Urine pH (5.0-8.0) Ur Specific [place] (1.005-1.025) Urine Protein (NEG-TRACE) MG/DL Urine Glucose (UA) (NEG) MG/DL Urine Ketones (NEG) MG/DL Urine Blood (NEG) Urine Nitrite (NEG) Ur Leukocyte Esterase (NEG) Urine RBC (0) /HPF Urine WBC (0-4) /HPF Ur Squamous Epith Cells /LPF Urine Bacteria /LPF Urine Mucus /LPF Imaging Data First trimester ultrasound: Attestation: I personally reviewed and interpreted this imaging study as follows: Radiologist's impression: FINDINGS: There is single intrauterine gestation again seen. Small subchorionic hemorrhage is decreased in size, current measurements 0.4 x 0.7 x 1.6 cm. Prior measurement 1.2 x 1.5 x 2.3 cm. There is a contraction anterior uterus 2.7 cm size. No fibroid in this area on prior imaging. Early posterior placenta is suggested. No placental hemorrhage or hematoma. HR: 153 beats per minute. CRL (crown rump length): 4.4 cm (11 weeks 2 days +/- 4 days). There is been appropriate growth since the initial ultrasound. MATERNAL ADNEXA: The right maternal ovary measures 4.2 x 2.5 x 4.2 cm. The left maternal ovary measures 4.2 x 2.5 x 3.0 cm. No adnexal mass or maternal pelvic ascites. US/US OB follow up IMPRESSION: 1. Single intrauterine gestation with appropriate growth since the initial ultrasound. cardiac activity 153 bpm. 2. Small subchorionic hemorrhage decreased in size from prior studies, currently 0.4 x 0.7 x 1.6 cm. 3. No maternal adnexal mass or pelvic ascites. Discharge Plan Discharge Clinical Impression: Threatened Patient Disposition: Home, Self-Care Instructions: Threatened Miscarriage (ED) Additional Instructions: You should be on pelvic rest for at least 7 days meaning nothing into the vaginal area. You should have repeat serum quants which her OBGYN within the next 48 hours. I gave you an order and you can follow-up with the lab so the OBGYN can follow your serum quants. Please contact them today to make a follow-up appointment within the next 2 days. Return if any new or worsening symptoms. Prescriptions: New acetaminophen [Tylenol] 325 mg tablet 650 mg PO Q6H PRN (Reason: pain) Qty: 10 RF: 0 No Action promethazine 12.5 mg suppository 12.5 mg FL Q6H PRN (Reason: hyperemesis) 10 Days Qty: 12 RF: 2 ondansetron 4 mg tablet,disintegrating 4 mg PO TID PRN (Reason: nausea and vomiting) 5 Days Qty: 5 RF: 0 pyridoxine (vitamin B6) 25 mg tablet 25 mg PO TID Qty: 60 RF: 0 ondansetron HCl [Zofran] 4 mg tablet 4 mg PO Q8H PRN (Reason: nausea and vomiting) Qty: 10 RF: 0 diphenhydramine HCl [Benadryl] 25 mg capsule 25 mg PO Q6H PRN (Reason: nausea and vomiting) Qty: 14 RF: 0 Plus (calcium carb) 27 mg iron- 1 mg tablet 1 tab PO DAILY RF: 0 amoxicillin-pot clavulanate 875-125 mg tablet 1 tab PO BID RF: 0 albuterol sulfate 90 mcg/actuation HFA aerosol inhaler 2 puff PO Q6H PRNRF: 0 prednisone 20 mg tablet 20 mg PO BID RF: 0 cetirizine 10 mg tablet 10 mg PO DAILY RF: 0 metronidazole 500 mg tablet 500 mg PO BID RF: 0 medroxyprogesterone 10 mg tablet 0 mg PO RF: 0 Nortrel 7/7/7 (28) 0.5/0.75/1 mg- 35 mcg tablet 1 tab PO DAILY RF: 0 doxycycline hyclate 100 mg tablet 100 mg PO Q12H RF: 0 cephalexin 500 mg capsule PO Q6H RF: 0 sulfamethoxazole-trimethoprim 800-160 mg tablet 1 tab PO Q12H RF: 0 Plus (calcium carb) 27 mg iron- 1 mg tablet 1 tab PO DAILY 30 Days Qty: 30 RF: 11 Referrals: Seamus Bennett MD [Physician] - 2 days (for repeat quants And evaluation.) Stand Alone Forms: Work/School Release Discharge Date/Time: 04/23/20 11:45 Print Language: Thai
[2020-04-23 11:39] VITALS: BP 123/76; PULSE 73; RESP 15
== END 2020-04-23 11:45 | disposition home or self-care (01) ==
PROVIDERS: Physician Assistant Medical; Emergency Provider Internal Medicine; PCP Nurse Practitioner Family
DX: O20.9 Hemorrhage in early pregnancy, unspecified (principal); Z3A.11 11 weeks gestation of pregnancy; Z79.899 Other long term (current) drug therapy
CPT/HCPCS: 36415; 76816; 80048; 80076; 81001; 81003; 83735; 84702; 85025; 85610; 99284

== ENCOUNTER 2020-05-02 08:30 | Outpatient (REF) | payer OTHER, SELFPAY ==
--- NOTE | 2020-05-02 08:32 | US_ITS ---
EXAMINATION: OBSTETRICAL ULTRASOUND, FIRST TRIMESTER HISTORY: A 29-year-old at the 13.0 weeks of gestation NT screening BMI 37.2 Vaginal spotting COMPARISON: 04/23/2020 TECHNIQUE: Real time transabdominal imaging with color and M-mode Doppler. FINDINGS: A single, live IUP CRL of 71.6 mm c/w 13.3wks is noted. Heart Rate: 152 beats per minute. Normal yolk sac seen. NT was 1.8.mm. NB Present The embryo appears sonographically wnl for this GA. Both maternal ovaries are seen and appear normal. Subchorionic hematoma seen in the inferior portion of the placenta: 2.4 x 0.9 x 4.1 cm GESTATIONAL AGE: 1. Established GA: 13.0 wks 2. GA from [facility]: 13.3 wks ESTIMATED DATE OF DELIVERY: 1. Established TYRONE: 11/07/2020 2. [facility] from [facility]: 11/04/2020 US/US OB 1T nuc measure IMPRESSION: 1. A single live IUP 2. Size equals dates 3. NT of 1.8 mm 4. Small subchorionic hematoma MFM Consultation: I reviewed the ultrasound findings along with significance of NT measurement. The NT of less than 3mm is generally reassuring. However, the sensitivity for T21 detection is only 60%. I reviewed the availability of serum aneuploidy screening which includes cell-free DNA and placental protein based tests. I discussed the sensitivity, false-positive rate, and other limitations associated with each test. I also reviewed the availability of invasive diagnostic tests that are associated small but definite risk of miscarriage. We also reviewed the differences between screening tests and diagnostic tests. After our discussion, she opted for the First trimester screening that is based on cell-free DNA or non-invasive testing (NIPT). Physical complaining of vaginal spotting last few days. Denies cramps. Gave her reassurance that most likely from the subchorionic hematoma which should resolve spontaneously. A follow up at 18 weeks for survey has been scheduled. Thank you very much for this referral. Majority of this visit was spent reviewing her care and counselling her in face to face time: Time spent 30 min.
== END 2020-05-02 08:31 | disposition home or self-care (01) ==
LOC: HO.US 08:30
PROVIDERS: Visit Provider Advanced Practice Midwife
DX: O26.851 Spotting complicating pregnancy, first trimester (principal); S62.306D Unspecified fracture of fifth metacarpal bone, right hand, subsequent encounter for fracture with routine healing; Z3A.13 13 weeks gestation of pregnancy
CPT/HCPCS: 76813; 99212

== ENCOUNTER 2020-05-09 15:00 | Outpatient (RCR) | payer OTHER, SELFPAY ==
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
--- NOTE | 2020-11-05 13:58 | MHC.OT.DC ---
[address] [phone] F: [phone] Occupational Therapy Discharge Note Provider: Patricia Ibrahim PA-C Diagnosis: Right D5 MCP Fx Date of Evaluation: 05/02/20 Treatments to Date: 2 Discharge Status: Improved Function Independent with HEP Discharge Summary: Emily was seen in OT a few months ago s/p right D5 MCP fx. She was doing well w/ decreased today, mild discomfort related to gripping exercise. Good ROM and very slight edema. Good follow through w/ HEP, wearing orthosis only with heavier activities, but less frequent. She did not follow up for further OT visits. Electronically Signed By: Chantal Mckenzie, OTR/L Please Sign and return to therapist, thank you for your referral.
== END 2020-11-05 13:59 | disposition other institution (70) ==
LOC: HO.OT 15:00
PROVIDERS: Visit Provider Physician Assistant
DX: S62.306D Unspecified fracture of fifth metacarpal bone, right hand, subsequent encounter for fracture with routine healing (principal)
CPT/HCPCS: 97035; 97110; 97165

== ENCOUNTER → 2020-05-19 15:08 | Outpatient (BNVA) | payer OTHER, SELFPAY | PROVIDERS: PCP Nurse Practitioner Family; Visit Provider Advanced Practice Midwife | DX: O99.611 Diseases of the digestive system complicating pregnancy, first trimester (principal); K59.00 Constipation, unspecified | CPT/HCPCS: 99212 ==

== ENCOUNTER 2020-05-27 15:39 | Outpatient (REF) | payer OTHER, SELFPAY ==
[2020-05-27 17:41] LABS: Glucose 1 Hour PP 50gm Dose 140 mg/dL (60-140)
[2020-05-27 17:47] LABS: Alanine Aminotransferase 9 U/L (0-31); Aspartate Amino Transferase 12 U/L (5-31)
[2020-07-30 11:58] LABS: HCV Log PCR <1.18 NOT DETECTED; HepC Viral Load <15 NOT DETECTED
== END 2020-05-27 15:40 | disposition home or self-care (01) ==
LOC: HO.LAB 15:39
PROVIDERS: PCP Nurse Practitioner Family; Visit Provider Advanced Practice Midwife
DX: O26.899 Other specified pregnancy related conditions, unspecified trimester (principal); R51.9 Headache, unspecified
CPT/HCPCS: 36415; 84450; 84460; 86850; 86900; 86901; 87522

== ENCOUNTER 2020-06-03 07:10 | Outpatient (REF) | payer OTHER, SELFPAY ==
[2020-06-03 08:41] LABS: Glucose Fasting 90 mg/dL (60-99)
[2020-06-03 09:48] LABS: Glucose 1 Hour 174 mg/dL
[2020-06-03 09:56] LABS: Amphetamine Screen Urine Not Detected (Not Detect); Barbiturates, Urine Not Detected (Not Detect); Benzodiazepines Screen Urine Not Detected (Not Detect); Cannabinoid Screen Urine Not Detected (Not Detect); Cocaine Screen Urine Not Detected (Not Detect); Opiate Screen Urine Not Detected (Not Detect); Phencyclidine Screen Urine Not Detected (Not Detect)
[2020-06-03 10:32] LABS: Glucose 2 Hour 142 mg/dL
[2020-06-03 11:12] LABS: Glucose 3 Hour 116 mg/dL
== END 2020-06-03 07:11 | disposition home or self-care (01) ==
LOC: HO.LAB 07:10
PROVIDERS: PCP Nurse Practitioner Family; Visit Provider Advanced Practice Midwife
DX: O99.810 Abnormal glucose complicating pregnancy (principal); Z3A.00 Weeks of gestation of pregnancy not specified; Z87.898 Personal history of other specified conditions
CPT/HCPCS: 80307; 82951; 86850; 86900; 86901

== ENCOUNTER → 2020-06-06 09:53 | Outpatient (BNVA) | payer OTHER, SELFPAY | PROVIDERS: PCP Nurse Practitioner Family; Visit Provider Physician Assistant | DX: S62.306D Unspecified fracture of fifth metacarpal bone, right hand, subsequent encounter for fracture with routine healing (principal) | CPT/HCPCS: 99212 ==

== ENCOUNTER 2020-06-13 09:54 | Outpatient (REF) | payer OTHER, SELFPAY ==
--- NOTE | 2020-06-13 09:59 | US_ITS ---
EXAMINATION: US OBSTETRICAL CLINICAL INFORMATION: 29-year-old at 19.0 weeks of gestation Suspected anomaly COMPARISON: 05/02/2020 TECHNIQUE: Real-time transabdominal ultrasound was performed using C1-5 megahertz transducer. FINDINGS: A single, active, fetus is seen in vertex presentation. The placenta is posterior without previa, and the amniotic fluid volume is wnl. MEASUREMENTS: 1. Biparietal Diameter: 4.5 cm; 19.5 wks 2. Occipital Frontal Diameter: 5.8 cm 3. Head Circumference: 16.9 cm; 19.4 wks 4. Abdominal Circumference: 13.6 cm; 19.1 wks 5. Femur Length: 3.0 cm; 19.2 wks 6. Humerus Length: 2.9 cm; 19.2 wks 7. Tibia Length: 2.6 cm; 19.3 wks 8. Ulna Length: 2.6 cm; 19.4 wks 9. Lateral ventricle: 0.82 cm 10. Cerebellum: 2.0 cm; E.4 wks 11. Cisterna Magna: 0.4 cm 12. Nuchal Fold: 3.6 mm 13. Heart Rate: 146 beats per minute Rt ovary: normal Lt ovary: normal Cervical length 4.2 cm on T/A. GESTATIONAL AGE: 1. Established GA: 19.0 wks 2. GA from [facility]: 19.3 wks ESTIMATED DATE OF DELIVERY: 1. Established TYRONE: 11/07/2020 2. TYRONE from [facility]: 11/04/2020 ANATOMY: The visualized anatomy includes but not limited to: 1. Cranium: Normal 2. Intracranial anatomy: cavum septum pellucidi, lateral ventricles, choroid plexus, cerebellum, posterior fossa, third and fourth ventricles. 3. face: Suboptimal due to position 4. Heart: The views of RVOT, aortic and ductal arches were limited due to position. Rest of the cardiac anatomy was within normal limits.. 5. Diaphragm: Normal 6. Abdominal wall: Normal 7. Cord Insertion: Normal 8. Spine: Cervical, thoracic, lumbar, sacral. 9. Stomach: Normal size and shape 10. Right Kidney: Normal 11. Left Kidney: Normal 12. 3 vessel cord: Normal 13. Upper extremity: Open hands, fifth digit. 14. Lower extremity: Tibia, fibula, bilateral feet. 15. Bladder: Normal 16. Genitalia: Female, patient aware US/US OB /maternal det add IMPRESSION: 1. Single, living, intrauterine with appropriate biometry. 2. Suboptimal views of the face and the heart due to position. Rest of the anatomy was within normal limits. DISCUSSION: I reviewed today's ultrasound findings. We discussed the limitations of ultrasound in diagnosing aneuploidy and other congenital abnormalities. I reviewed the differences between screening test and diagnostic test. Amniocentesis was discussed and declined. She was informed that the baseline incidence of congenital abnormalities is approximately 3-5%. Not all these conditions are diagnosable in utero. RECOMMENDATIONS: 1. Follow-up anatomy exam is been scheduled in 2 weeks. Thank you for allowing me to participate in her care.
== END 2020-06-13 09:55 | disposition home or self-care (01) ==
LOC: HO.US 09:54
PROVIDERS: Visit Provider Advanced Practice Midwife
DX: O35.9XX0 Maternal care for (suspected) fetal abnormality and damage, unspecified, not applicable or unspecified (principal); Z3A.19 19 weeks gestation of pregnancy
CPT/HCPCS: 76811; 76812

== ENCOUNTER → 2020-06-17 10:32 | Outpatient (BNVA) | payer OTHER, SELFPAY | PROVIDERS: PCP Nurse Practitioner Family; Visit Provider Advanced Practice Midwife | DX: Z34.92 Encounter for supervision of normal pregnancy, unspecified, second trimester (principal) | CPT/HCPCS: 81003; 99212 ==

== ENCOUNTER 2020-06-27 08:49 | Outpatient (REF) | payer OTHER, SELFPAY ==
--- NOTE | 2020-06-27 08:53 | US_ITS ---
EXAMINATION: OBSTETRICAL ULTRASOUND, Follow up HISTORY: 29-year-old at the 21.0 weeks of gestation Follow-up anatomy Size date discrepancy COMPARISON: 06/13/2020 TECHNIQUE: Real time transabdominal imaging with color and M-mode Doppler. PRESENTATION: Vertex PLACENTA LOCATION: Posterior without previa AMNIOTIC FLUID: Normal MEASUREMENTS: 1. Biparietal Diameter: 5.3 cm; 22.0 wks 2. Head Circumference: 19.9 cm; 22.1 wks 3. Abdominal Circumference: 15.8 cm; 21.0 wks 4. Femur Length: 3.5 cm; 21.1 wks 5. Heart Rate: 146 beats per minute WEIGHT: Estimated weight is 399 grams (0 lbs 14 oz) -- 50 %. Normal views of lateral cerebral ventricle, profile, nose/lips, 4ch view, LVOT, RVOT, gender. GESTATIONAL AGE: 1. Established GA: 21.0 wks 2. GA from AUA: 21.4 wks ESTIMATED DATE OF DELIVERY: 1. Established TYRONE: 11/07/2020 2. TYRONE from AUA: 11/03/2020 US/US OB follow up IMPRESSION: 1. A single fetus with appropriate interval growth. 2. Previously limited views of the anatomy were seen as listed above. No abnormalities were noted in visualized anatomy. 3. This completes the survey. I reviewed the limitations of ultrasound in diagnosing aneuploidy and other congenital abnormalities. Amniocentesis was again reviewed and she declined. She was informed that the baseline instance of congenital abnormalities and defects in the general population is approximately 3-5%. Not all these conditions are diagnosable in utero. RECOMMENDATIONS: 1. f/u PRN Thank you very much for this referral. Visiting time 20 minutes. Majority of this visit was spent reviewing the ultrasound findings as well as her care.
== END 2020-06-27 08:50 | disposition home or self-care (01) ==
LOC: HO.US 08:49
PROVIDERS: Visit Provider Advanced Practice Midwife
DX: O26.842 Uterine size-date discrepancy, second trimester (principal); Z36.2 Encounter for other antenatal screening follow-up; Z3A.21 21 weeks gestation of pregnancy
CPT/HCPCS: 76816

== ENCOUNTER → 2020-07-15 08:27 | Outpatient (BNVA) | payer OTHER, SELFPAY | PROVIDERS: Visit Provider Advanced Practice Midwife | DX: Z34.92 Encounter for supervision of normal pregnancy, unspecified, second trimester (principal); N76.0 Acute vaginitis | CPT/HCPCS: 81003; 99212 ==

== ENCOUNTER → 2020-08-12 08:28 | Outpatient (BNVA) | payer OTHER, SELFPAY | PROVIDERS: Visit Provider Advanced Practice Midwife | DX: Z34.93 Encounter for supervision of normal pregnancy, unspecified, third trimester (principal); Z13.31 Encounter for screening for depression; Z3A.27 27 weeks gestation of pregnancy | CPT/HCPCS: 81003; 99212 ==

== ENCOUNTER 2020-08-15 08:51 | Outpatient (REF) | payer OTHER, SELFPAY ==
--- NOTE | ~2020-08-15 | US_ITS ---
EXAMINATION: OBSTETRICAL ULTRASOUND, Follow up HISTORY: 29-year-old at 20.0 weeks of gestation Size date discrepancy COMPARISON: 06/27/2020 TECHNIQUE: Real time transabdominal imaging with color and M-mode Doppler. PRESENTATION: Vertex PLACENTA LOCATION: Posterior without previa AMNIOTIC FLUID: Normal MEASUREMENTS: 1. Biparietal Diameter: 7.8 cm; 30.3 wks 2. Head Circumference: 27.5 cm; 30.1 wks 3. Abdominal Circumference: 25.2 cm; 29.3 wks 4. Femur Length: 5.14 cm; 27.4 wks 5. Heart Rate: 155 beats per minute WEIGHT: EFW: 1300 grams (2 lbs 14 oz) -- 72 %. GESTATIONAL AGE: 1. Established GA: 28.0 wks 2. GA from AUA: 29.3 wks ESTIMATED DATE OF DELIVERY: 1. Established TYRONE: 11/07/2020 2. TYRONE from AUA: 10/28/2020 US/US OB follow up IMPRESSION: 1. A single active fetus is in vertex presentation 2. Size equals dates 3. Normal amniotic fluid index Thank you very much for this referral. This note was generated with a voice recognition program. Please excuse any errors which may have been overlooked during my review of this note. Sometimes these errors may affect the content or meaning of a given sentence.
[2020-08-15 13:21] LABS: Hematocrit 31.8 % (37-47); Hemoglobin 10.5 g/dl (12.0-16.0); Mean Corpuscular Hemoglobin 29.3 pg (27.0-33.0); Mean Corpuscular Volume 88.8 fL (80-98); Mean Platelet Volume 11.5 fL (9.4-12.3); Platelet Count 277 X10*3/uL (160-400); Red Blood Count 3.58 X10*6/uL (4.20-5.50); Red Cell Distribution Width 12.9 % (11.0-16.0); White Blood Count 14.2 X10*3/uL (4.8-10.8)
[2020-08-15 13:42] LABS: Glucose 1 Hour PP 50gm Dose 150 mg/dL (60-140); Syphilis Screen Nonreactive (Nonreactive)
[2020-08-15 14:00] LABS: Amphetamine Screen Urine Not Detected (Not Detect); Barbiturates, Urine Not Detected (Not Detect); Benzodiazepines Screen Urine Not Detected (Not Detect); Cannabinoid Screen Urine Not Detected (Not Detect); Cocaine Screen Urine Not Detected (Not Detect); Opiate Screen Urine Not Detected (Not Detect); Phencyclidine Screen Urine Not Detected (Not Detect)
== END 2020-08-15 08:52 | disposition home or self-care (01) ==
LOC: HO.US 08:51
PROVIDERS: Visit Provider Advanced Practice Midwife
DX: O26.842 Uterine size-date discrepancy, second trimester (principal); Z20.2 Contact with and (suspected) exposure to infections with a predominantly sexual mode of transmission; Z3A.20 20 weeks gestation of pregnancy
CPT/HCPCS: 76816; 80307; 85027; 86780; 86850; 86900; 86901

== ENCOUNTER 2020-08-28 06:07 | Outpatient (REF) | payer OTHER, SELFPAY ==
[2020-08-28 08:50] LABS: Glucose 1 Hour 166 mg/dL
[2020-08-28 08:57] LABS: Glucose Fasting 114 mg/dL (60-99)
[2020-08-28 10:01] LABS: Glucose 2 Hour 211 mg/dL
[2020-08-28 10:30] LABS: Glucose 3 Hour 163 mg/dL
== END 2020-08-28 06:08 | disposition home or self-care (01) ==
LOC: HO.LAB 06:07
PROVIDERS: PCP Nurse Practitioner Family; Visit Provider Advanced Practice Midwife
DX: O99.810 Abnormal glucose complicating pregnancy (principal); Z3A.00 Weeks of gestation of pregnancy not specified
CPT/HCPCS: 36415; 82951; 86900; 86901

== ENCOUNTER → 2020-09-02 10:48 | Outpatient (BNVA) | payer OTHER, SELFPAY | PROVIDERS: PCP Nurse Practitioner Family; Visit Provider Obstetrics & Gynecology | DX: O24.419 Gestational diabetes mellitus in pregnancy, unspecified control (principal); Z3A.30 30 weeks gestation of pregnancy | CPT/HCPCS: 81003; 99211; 99212 ==

== ENCOUNTER 2020-09-12 13:23 | Outpatient (REF) | payer OTHER, SELFPAY ==
--- NOTE | ~2020-09-12 | US_ITS ---
EXAMINATION: OBSTETRICAL ULTRASOUND, Follow up HISTORY: 29-year-old at 32.0 weeks of gestation GDM A1 High BMI COMPARISON: 08/15/2020 TECHNIQUE: Real time transabdominal imaging with color and M-mode Doppler. PRESENTATION: Vertex PLACENTA LOCATION: Posterior without previa AMNIOTIC FLUID: MARIS 14.9 cm MEASUREMENTS: 1. Biparietal Diameter: 8.9 cm; 35.1 wks 2. Head Circumference: 31.5 cm; 35.3 wks 3. Abdominal Circumference: 29.1 cm; 33.1 wks 4. Femur Length: 6.52 cm; 33.5 wks 5. Heart Rate: 150 beats per minute WEIGHT: EFW: 2248 grams (4 lbs 15 oz) -- 88 %. BIOPHYSICAL PROFILE: Motion: 2 Tone: 2 Breathin Amniotic Fluid: 2 Total score: 8/8 GESTATIONAL AGE: 1. Established GA: 32.0 wks 2. GA from AUA: 34.3 wks ESTIMATED DATE OF DELIVERY: 1. Established TYRONE: 11/07/2020 2. TYRONE from AUA: 10/21/2020 US/US OB follow up IMPRESSION: 1. A single active fetus is in vertex presentation 2. Size equals dates, EFW corresponds to 88 percentile. 3. Normal amniotic fluid index 4. Reassuring biophysical profile I reviewed today's ultrasound findings and the limitations of estimating weights. I also reviewed the clinical significance of percentile ranking of the the estimated weight. She is currently on the gestational diabetes diet. Reports that her fasting values are below 95 and postprandials are mostly below 120. We discussed the clinical consequences of suboptimally controlled blood pressure in . These include macrosomia and hypoglycemia. I've informed her that if the EFW approaches 4500 g in mothers with diabetes, elective section should be discussed to prevent shoulder dystocia. As long as she continues to do well on diet, her follow-up in approximately 3 weeks is suggested (not scheduled). Thank you very much for this referral. Total time 30 minutes. The time spent was devoted to counseling the patient about the disease and diagnosis, coordinating care including reviewing her records, pertinent lab data and studies, as well as discussing diagnostic evaluation and workup, plan therapeutic interventions and future disposition of care. This includes any additional research needed to obtain further information in formulating the plan of care of this patient. This note was generated with a voice recognition program. Please excuse any errors which may have been overlooked during my review of this note. Sometimes these errors may affect the content or meaning of a given sentence.
== END 2020-09-12 13:24 | disposition home or self-care (01) ==
LOC: HO.US 13:23
PROVIDERS: PCP Family Medicine; Visit Provider Obstetrics & Gynecology
DX: O24.419 Gestational diabetes mellitus in pregnancy, unspecified control (principal)
CPT/HCPCS: 76816

== ENCOUNTER → 2020-09-17 11:12 | Outpatient (BNVA) | payer OTHER, SELFPAY | PROVIDERS: PCP Family Medicine; Visit Provider Obstetrics & Gynecology | DX: O24.419 Gestational diabetes mellitus in pregnancy, unspecified control (principal); Z3A.32 32 weeks gestation of pregnancy | CPT/HCPCS: 90471; 90715; 99212 ==

== ENCOUNTER → 2020-10-01 10:46 | Outpatient (BNVA) | payer OTHER, SELFPAY | PROVIDERS: Visit Provider Obstetrics & Gynecology | DX: O24.419 Gestational diabetes mellitus in pregnancy, unspecified control (principal); Z3A.34 34 weeks gestation of pregnancy | CPT/HCPCS: 81003; 99212 ==

== ENCOUNTER 2020-10-03 08:27 | Outpatient (REF) | payer OTHER, SELFPAY ==
--- NOTE | ~2020-10-03 | US_ITS ---
EXAMINATION: OBSTETRICAL ULTRASOUND, Follow up HISTORY: 29-year-old at the 35.0 weeks of gestation GDM A1 High BMI COMPARISON: 09/12/2020 TECHNIQUE: Real time transabdominal imaging with color and M-mode Doppler. PRESENTATION: Vertex PLACENTA LOCATION: Posterior without previa AMNIOTIC FLUID: MARIS 10.0 cm MEASUREMENTS: 1. Biparietal Diameter: 9.1 cm; 37.0 wks 2. Head Circumference: 34.1 cm; 39.2 wks 3. Abdominal Circumference: 32.1 cm; 36.1 wks 4. Femur Length: 7.0 cm; 36.1 wks 5. Heart Rate: 155 beats per minute WEIGHT: EFW: 2951 grams (6 lbs 8 oz) -- 86 %. BIOPHYSICAL PROFILE: Motion: 2 Tone: 2 Breathin Amniotic Fluid: 2 Total score: 8/8 GESTATIONAL AGE: 1. Established GA: 35.0 wks 2. GA from AUA: 37.1 wks ESTIMATED DATE OF DELIVERY: 1. Established TYRONE: 11/07/2020 2. TYRONE from AUA: 10/23/2020 US/US OB follow up IMPRESSION: 1. A single active fetus is in vertex presentation 2. Size equals dates 3. Reassuring biophysical profile I reviewed today's ultrasound findings as well as the limitations of ultrasound and estimating weights. She informs me that her glucose values are within target range. In women with gestational diabetes, if the EFW is more than 4500 g, an elective section should be discussed to prevent shoulder dystocia. I reassured her that the based on today's examination, it is unlikely that the fetus will be macrosomic. As long as her glycemic control is within the target range, her follow-up should be in approximately 3 weeks for repeat interval growth evaluation. I recommend starting weekly NST. Thank you very much for this referral. Total time 20 minutes. The time spent was devoted to counseling the patient about the disease and diagnosis, coordinating care including reviewing her records, pertinent lab data and studies, as well as discussing diagnostic evaluation and workup, plan therapeutic interventions and future disposition of care. This includes any additional research needed to obtain further information in formulating the plan of care of this patient. This note was generated with a voice recognition program. Please excuse any errors which may have been overlooked during my review of this note. Sometimes these errors may affect the content or meaning of a given sentence.
== END 2020-10-03 08:28 | disposition home or self-care (01) ==
LOC: HO.US 08:27
PROVIDERS: Visit Provider Obstetrics & Gynecology
DX: O24.419 Gestational diabetes mellitus in pregnancy, unspecified control (principal)
CPT/HCPCS: 76816

== ENCOUNTER 2020-10-17 10:26 | Outpatient (REF) | payer OTHER, SELFPAY | END 2020-10-17 10:27 | disposition home or self-care (01) | LOC: HO.LAB 10:26 | PROVIDERS: PCP Nurse Practitioner Family; Visit Provider Obstetrics & Gynecology | DX: O24.419 Gestational diabetes mellitus in pregnancy, unspecified control (principal); O99.213 Obesity complicating pregnancy, third trimester; E66.9 Obesity, unspecified; O99.613 Diseases of the digestive system complicating pregnancy, third trimester; K59.00 Constipation, unspecified; Z3A.30 30 weeks gestation of pregnancy | CPT/HCPCS: 87081; 87147; 99212 ==

== ENCOUNTER → 2020-10-23 10:40 | Outpatient (BNVA) | payer OTHER, SELFPAY | PROVIDERS: PCP Nurse Practitioner Family; Visit Provider Obstetrics & Gynecology | DX: O24.419 Gestational diabetes mellitus in pregnancy, unspecified control (principal); Z3A.37 37 weeks gestation of pregnancy | CPT/HCPCS: 81003; 99212 ==

== ENCOUNTER 2020-10-24 08:53 | Outpatient (REF) | payer OTHER, SELFPAY ==
--- NOTE | ~2020-10-24 | US_ITS ---
EXAMINATION: OBSTETRICAL ULTRASOUND, Follow up HISTORY: 30-year-old at 38.0 weeks of gestation GDM A1 High BMI COMPARISON: 10/03/2020 TECHNIQUE: Real time transabdominal imaging with color and M-mode Doppler. PRESENTATION: Vertex PLACENTA LOCATION: Posterior without previa AMNIOTIC FLUID: MARIS 10.9 cm MEASUREMENTS: 1. Biparietal Diameter: 9.6 cm; 39.1 wks 2. Head Circumference: 33.2 cm; 38.0 wks 3. Abdominal Circumference: 34.7 cm; 38.5 wks 4. Femur Length: 7.6 cm; 38.6 wks 5. Heart Rate: 146 beats per minute WEIGHT: EFW: 3550 grams (7 lbs 13 oz) -- 78 %. BIOPHYSICAL PROFILE: Motion: 2 Tone: 2 Breathin Amniotic Fluid: 2 Total score: 8/8 GESTATIONAL AGE: 1. Established GA: 38.0 wks 2. GA from AUA: 38.5 wks ESTIMATED DATE OF DELIVERY: 1. Established TYRONE: 11/07/2020 2. TYRONE from A: 11/02/2020 US/US OB follow up IMPRESSION: 1. A single active fetus is in vertex presentation 2. Size equals dates 3. Reassuring BPP with normal MARIS She informs me that her fasting glucose this morning was in the 80s. Her postprandial last evening was 122. States that the approximately 80% of glucose values are within target range. I gave her reassurance regarding the size. Today's examination was not suggestive of macrosomia. She is scheduled for a delivery between 39-40 weeks of gestation. Thank you very much for this referral. Total time 20 minutes. The time spent was devoted to counseling the patient about the disease and diagnosis, coordinating care including reviewing her records, pertinent lab data and studies, as well as discussing diagnostic evaluation and workup, plan therapeutic interventions and future disposition of care. This includes any additional research needed to obtain further information in formulating the plan of care of this patient. This note was generated with a voice recognition program. Please excuse any errors which may have been overlooked during my review of this note. Sometimes these errors may affect the content or meaning of a given sentence.
== END 2020-10-24 08:54 | disposition home or self-care (01) ==
LOC: HO.US 08:53
PROVIDERS: PCP Nurse Practitioner Family; Visit Provider Obstetrics & Gynecology
DX: O24.419 Gestational diabetes mellitus in pregnancy, unspecified control (principal); Z3A.00 Weeks of gestation of pregnancy not specified
CPT/HCPCS: 76816

== ENCOUNTER → 2020-10-31 15:18 | Outpatient (BNVA) | payer OTHER, SELFPAY | PROVIDERS: PCP Nurse Practitioner Family; Visit Provider Obstetrics & Gynecology | DX: O24.419 Gestational diabetes mellitus in pregnancy, unspecified control (principal); Z3A.39 39 weeks gestation of pregnancy | CPT/HCPCS: 81003; 99212 ==

== ENCOUNTER → 2020-12-18 11:01 | Outpatient (BNVA) | payer OTHER, SELFPAY | PROVIDERS: PCP Nurse Practitioner Family; Visit Provider Advanced Practice Midwife | DX: Z39.2 Encounter for routine postpartum follow-up (principal); E66.01 Morbid (severe) obesity due to excess calories; Z68.41 Body mass index [BMI] 40.0-44.9, adult; Z39.1 Encounter for care and examination of lactating mother | CPT/HCPCS: 99212 ==